=== PATIENT | male | born 1985 | race Caucasian/White ===

== ENCOUNTER 2019-12-11 11:57 | Inpatient (IN) | payer BC ==
[2019-12-11] MEDS ORDERED: LORazepam 2 MG/ML INJ IV PRN ×2 (12:15)
[2019-12-11] MEDS ORDERED: ONDANSETRON 4 MG/2 ML VIAL IVP PRN (12:17)
[2019-12-11] MEDS ORDERED: NALOXONE 0.4 MG/ML 1 ML VIAL IV PRN (12:17)
--- NOTE | 2019-12-11 12:23 | ED ---
General Adult HPI - General Chief complaint: Alcohol Stated complaint: Alcohol Detox Time Seen by Provider: 12/11/19 11:59 Source: patient, RN/MD, EMS, RN notes reviewed, old records reviewed (Review of report from [facility]) Mode of arrival: EMS Limitations: no limitations - History of Present Illness Initial comments: Patient is a pleasant 33-year-old male presenting to the emergency department as a transfer from [facility]. Patient was transferred secondary to alcohol withdrawal and concerns for impending DTs. Patient has been drinking heavily for the past month or so secondary to quarantined. Patient has been drinking around a fifth of alcohol per day. Patient states he was emotional last night and called his uncle. Patient denies suicidal ideation however states he was emotional and crying. Patient was brought to the hospital there and then transferred here with concerns for impending DTs. Patient did receive 7 mg of Ativan and was still borderline hypertension and tachycardic. Patient states he still feels somewhat restless. Patient does admit that he has occasionally seen some spots in the curtains. Patient denies any suicidal or homicidal thoughts. Patient denies ever making any suicidal or homicidal statements. - Related Data Allergies Allergy/AdvReac Type Severity Reaction Status Date / Time No Known Allergies Allergy Verified 12/11/19 12:07 Review of Systems ROS Statement: Those systems with pertinent positive or pertinent negative responses have been documented in the HPI. ROS Other: All systems not noted in ROS Statement are negative. Constitutional: Denies: fever Eyes: Denies: eye pain ENT: Denies: ear pain Respiratory: Denies: cough Cardiovascular: Denies: chest pain Endocrine: Denies: fatigue Gastrointestinal: Denies: abdominal pain Genitourinary: Denies: dysuria Musculoskeletal: Denies: back pain Skin: Denies: rash Neurological: Denies: weakness Psychiatric: Reports: as per HPI, anxiety. Denies: homicidal thoughts, suicidal thoughts Past Medical History Past Medical History: Atrial Fibrillation, GERD/Reflux History of Any Multi-Drug Resistant Organisms: None Reported Past Surgical History: Cardiac Ablation Additional Past Surgical History / Comment(s): loop recorder Past Psychological History: Anxiety Smoking Status: Current every day smoker Past Alcohol Use History: Abuse, Daily, Heavy Past Drug Use History: Marijuana General Exam Limitations: no limitations General appearance: alert, in no apparent distress Head exam: Present: normocephalic Eye exam: Present: normal appearance, PERRL, EOMI ENT exam: Present: normal oropharynx Neck exam: Present: normal inspection Respiratory exam: Present: normal lung sounds bilaterally Cardiovascular Exam: Present: tachycardia GI/Abdominal exam: Present: soft. Absent: tenderness Extremities exam: Present: normal inspection Neurological exam: Present: alert, oriented X3, CN II-XII intact. Absent: motor sensory deficit Expanded Neurological exam: Present: protecting the airway Speech: Present: fluid speech Motor strength exam: RUE: 5, LUE: 5, RLE: 5, LLE: 5 Eye Response: (4) open spontaneously Motor Response: (6) obeys commands Verbal Response: (5) oriented Psychiatric exam: Present: normal affect, normal mood Skin exam: Present: normal color Course Vital Signs 12/11/19 12:07 Temperature 98.9 F Pulse Rate 118 H Respiratory 18 Rate Blood Pressure 156/104 O2 Sat by Pulse 98 Oximetry Medical Decision Making - Medical Decision Making Patient updated on plan. Dr. Islas has been paged for admission covering for hospital call. Disposition Clinical Impression: Alcohol withdrawal syndrome Disposition: ADMITTED IP TO THIS HOSP Condition: Serious Is patient prescribed a controlled substance at d/c from ED?: No Referrals: None,Stated [REFERRING] - 1-2 days Decision Time: 12:23
[2019-12-11] MEDS ORDERED: LORazepam 2 MG/ML INJ IV STA (12:29)
[2019-12-11] MEDS: SODIUM CHLORIDE 0.9% 1,000 ML IV SCH (13:08)
[2019-12-11] MEDS: THIAMINE 100 MG TAB PO SCH (16:42)
[2019-12-11] MEDS: LORazepam 2 MG/ML INJ IV PRN ×3 (16:42→23:27)
--- NOTE | 2019-12-11 17:19 | P.HPIM ---
History of Present Illness H&P Date: 12/11/19 Chief Complaint: Alcohol withdrawal 33-year-old male presents the ED as a transfer from [facility] for alcohol withdrawal. There is also some concerns for suicidal ideation at [facility]. Apparently, patient has been drinking on a daily basis for the past month due to the pandemic. Patient reports drinking at least a fifth of whiskey a day along with beer. Patient states that he has been drinking on and off for the past 10 years. He quit 20 days prior to restarting again. Patient states that he did call his uncle that he did not see in many years asking for help that he may kill himself if he continues going down this road. His uncle got concerned and called 911. Patient reports symptoms of shakiness, chills, palpitations and diarrhea that happens when he does not drink. He denies any history of seizures. He denies any headache, lower extremity edema, nausea or vomiting, fever, chest pain, shortness of breath, changes in urination. No changes in appetite or weight. He denies any dizziness, numbness/weakness/tingling of the extremities. At [facility], he was noted to have a BP 155/97 with pulse of 125. EKG showed ventricular rate of 95. CBC was unremarkable. Urinalysis was negative. CMP showed chloride of 111, BUN of 6, glucose of 112, calcium of 7.6. Acetaminophen level was negative. Salicylate level was negative. Ethanol level was 300. UDS was negative except for THC. Patient was transferred to [facility] for alcohol intoxication with impending DT. Review of Systems Pertinent positives and negatives as discussed in HPI, a complete review of s ystems was performed and all other systems are negative. Past Medical History Past Medical History: Atrial Fibrillation, GERD/Reflux History of Any Multi-Drug Resistant Organisms: None Reported Past Surgical History: Ablation, Cardiac Ablation Additional Past Surgical History / Comment(s): loop recorder, cardioversion Past Anesthesia/Blood Transfusion Reactions: No Reported Reaction Past Psychological History: Anxiety Smoking Status: Current every day smoker Past Alcohol Use History: Abuse, Daily, Heavy Additional Past Alcohol Use History / Comment(s): Smoke about a pack a day , start smoking in 1999. Drinks a 5th a day with 10-12 beers daily for about a month Past Drug Use History: Marijuana - Past Family History Mother Additional Family Medical History / Comment(s): Chrons Father Family Medical History: COPD Additional Family Medical History / Comment(s): Alcholic Medications and Allergies Home Medications Medication Instructions Recorded Confirmed Type Aspirin [Adult Low Dose Aspirin EC] 81 mg PO BID 12/11/19 12/11/19 History Metoprolol Tartrate [Lopressor] 50 mg PO BID 12/11/19 12/11/19 History Multivitamins, Thera [Multivitamin 1 tab PO DAILY 12/11/19 12/11/19 History (formulary)] Omeprazole 20 mg PO BID 12/11/19 12/11/19 History busPIRone HCL 30 mg PO BID 12/11/19 12/11/19 History Allergies Allergy/AdvReac Type Severity Reaction Status Date / Time Penicillins Allergy Rash/Hives Verified 12/11/19 13:04 Physical Exam Vitals: Vital Signs Temp Pulse Pulse Resp BP BP Pulse Ox 12/11/19 16:00 110 H 16 12/11/19 15:27 98.4 F 109 H 16 143/82 95 12/11/19 14:02 98.4 F 117 H 16 139/89 96 12/11/19 13:14 109 H 18 129/85 96 12/11/19 12:07 98.9 F 118 H 18 156/104 98 Intake and Output 12/11/19 12/11/19 12/11/19 06:59 14:59 22:59 Other: # Voids 1 1 Weight 99.79 kg General: [non toxic], [no distress], [appears at stated age] Derm: [warm], [dry] Head: [atraumatic], [normocephalic], [symmetric] Eyes: [EOMI], [no lid lag], [anicteric sclera] Mouth: [no lip lesion], [mucus membranes moist] Cardiovascular: [S1S2 reg], [tachycardic], [positive DP pulse bilateral], Lungs: [CTA bilateral], [no rhonchi, no rales] , [no accessory muscle use] Abdominal: [soft], [ nontender to palpation], [no guarding], [no appreciable organomegaly] Ext: [no gross muscle atrophy], [no edema], [no contractures] Neuro: [ CN II-XI grossly intact], [no focal neuro deficits] Psych: [Alert], [oriented], [appropriate affect] Thrombosis Risk Factor Assmnt - Choose All That Apply Any of the Below Risk Factors Present?: No Assessment and Plan Assessment: Alcohol abuse with impending withdrawal syndrome Tachycardia likely due to the above History of A. fib Suicidal ideation Plans: Patient will be started on CIWA monitoring and given Ativan as needed. He will be placed on telemetry monitoring. Start thiamine by mouth. Plans: Continue to monitor. Telemetry monitoring. Potassium greater than 4 and magnesium greater than 2. History of cardioversion and ablation. Plans: Continue metoprolol by mouth. Patient completely denies suicidal ideation Plans: Follow psychiatry recommendations. DVT prophylaxis: [SCDs] Discussed with: [Patient] Anticipated discharge: [1-2 days] Anticipated discharge place: [Home] A total of [35] minutes was spent on the care of this complex patient more than 50% of the time was spent in counseling and care coordination. Patient names his mother Brenda decision-makers he can't make decisions for himself. Patient will like to be full code.
[2019-12-11] MEDS: METOPROLOL TARTRATE 50 MG TAB PO SCH (20:40)
[2019-12-11] MEDS: busPIRone HCl 10 MG TAB PO SCH (20:40)
[2019-12-11] MEDS: ASPIRIN 81 MG PO SCH (20:40)
[2019-12-11] MEDS: FAMOTIDINE 20 MG TAB PO SCH (20:40)
[2019-12-11] MEDS: HYDROcodone/APAP 5-325MG 1 EACH TAB PO PRN (20:40)
[2019-12-12] MEDS: LORazepam 2 MG/ML INJ IV PRN ×8 (02:57→22:56)
[2019-12-12] MEDS ORDERED: NICOTINE 7MG/24HR PATCH TRANSDERM STA (04:52)
[2019-12-12] MEDS: METOPROLOL TARTRATE 50 MG TAB PO SCH ×2 (07:33→20:01)
[2019-12-12] MEDS: ASPIRIN 81 MG PO SCH ×2 (07:33→20:01)
[2019-12-12] MEDS: THIAMINE 100 MG TAB PO SCH ×2 (07:33→16:53)
[2019-12-12] MEDS: PANTOPRAZOLE 40 MG TABLET PO SCH (07:34)
[2019-12-12] MEDS: busPIRone HCl 10 MG TAB PO SCH ×2 (07:34→20:01)
[2019-12-12] MEDS: MULTIVITAMINS, THERA 1 EACH TAB PO SCH (07:34)
[2019-12-12] MEDS: FAMOTIDINE 20 MG TAB PO SCH (07:34)
[2019-12-12] MEDS: HYDROcodone/APAP 5-325MG 1 EACH TAB PO PRN ×3 (07:37→21:43)
[2019-12-12] MEDS: SODIUM CHLORIDE 0.9% 1,000 ML IV SCH ×2 (07:39→14:00)
[2019-12-12 08:43] LABS: Basophils % (A) 1 %; Eosinophils # (A) 0.1 k/uL (0-0.7); Eosinophils % (A) 2 %; HCT 43.7 % (39.0-53.0); HGB 14.8 gm/dL (13.0-17.5); Lymphocytes # (A) 1.3 k/uL (1.0-4.8); Lymphocytes % (A) 22 %; MCH 32.2 pg (25.0-35.0); MCV 94.7 fL (80.0-100.0); Mean Platelet Volume 8.7; Monocytes # (A) 0.4 k/uL (0-1.0); Monocytes % (A) 6 %; Neutrophils # (A) 3.9 k/uL (1.3-7.7); Neutrophils % (A) 67 %; Platelet Count 139 k/uL (150-450); RBC 4.61 m/uL (4.30-5.90); WBC 5.7 k/uL (3.8-10.6)
[2019-12-12 08:50] LABS: ALT 125 U/L (4-49); AST 314 U/L (17-59); African American GFR (CKD) >90 (>60 ml/min/1.73 sqM); Albumin 3.9 g/dL (3.5-5.0); Alkaline Phosphatase 100 U/L (38-126); Anion Gap 10 mmol/L; Blood Urea Nitrogen 6 mg/dL (9-20); Calcium 9.4 mg/dL (8.4-10.2); Carbon Dioxide 24 mmol/L (22-30); Chloride 101 mmol/L (98-107); Glucose 94 mg/dL (74-99); Magnesium 1.9 mg/dL (1.6-2.3); Non-African American GFR(CKD) >90 (>60 ml/min/1.73 sqM); Potassium 3.7 mmol/L (3.5-5.1); Sodium 135 mmol/L (137-145); Total Bilirubin 1.5 mg/dL (0.2-1.3); Total Protein 6.9 g/dL (6.3-8.2)
[2019-12-12] MEDS ORDERED: MULTIVITAMINS, THERA 1 EACH TAB PO SCH (09:00)
[2019-12-12 12:58] VITALS: BMI 31.5
--- NOTE | 2019-12-12 14:05 | P.CN ---
Psychiatric Consult - . Consult:: 12/12/19 13:57 Identifying data: This patient is a 34-year-old single male who was admitted to the hospital with concerns of impending alcohol withdrawal. We're asked to consult regarding suicide ideation. History of present illness: The patient states that he was intoxicated with alcohol and was calling family members he had called his uncle who became alarmed and called 911. The patient apparently made statements that may have been suicidal in nature. The patient does not recall making those statements. He states that the last month he has been consuming a fifth of whiskey a day plus beer. He has a long history of alcohol use disorder with several relapses. He states he has been off of work and has been home alone. He states that he does not feel clinically depressed. He states he has no suicidal ideation intent or plan. He reports no hopelessness thinking. He describes future oriented thinking. He states that he needs to go home and clean his house. He has plans of selling his house and moving closer to family members as his current location as to remote. He is looking forward to engaging in work activity again. He states that his primary care physician has given him BuSpar for anxiety symptoms in the past and feels this may be providing some mild benefit. He reports no symptoms of psychosis he reports no history of hypomania or fitz. Past psychiatric history: No prior inpatient psychiatric hospitalization no reported suicide attempts, his only psychotropic medication is BuSpar 30 mg twice daily. He states he has not been tried on any others other than Ativan for prevention of alcohol withdrawal. Past medical history: History of pancreatitis related to alcohol use Chemical dependency history: Long history of alcohol use disorder for the last 10 years: He has been placed in inpatient chemical dependency treatment once [facility] was court ordered following a DUI arrest several years ago. He reports no use of any marijuana or illicit drugs. Family psychiatric/chemical dependency history: His father of complications related to alcohol use Social history the patient is single he has no children he resides alone. 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 Legal history includes DUI arrest no abuse history reported. Mental status exam: The patient is a male appearing his stated age he is dressed in hospital attire eye contact is appropriate speech is fluent sp ontaneous nonpressured. He indicates his mood is frustrated that he is in the hospital. He states he did not need this level of care. He reports having no hopelessness thinking he reports no suicidal ideation intent or plan he reports no homicidal ideation intent or plan. He spontaneously describes future oriented thinking. He endorses no auditory or visual hallucinations or any specific delusions there is no observed evidence of psychosis. He demonstrates no tangential thinking loose associations or flight of ideas he does not appear hypomanic or manic. He demonstrates no verbal or physical aggressiveness he demonstrates no involuntary repetitive movement. No tremulousness activity is observed during our conversation. He is oriented to person place and date. Impression 1. Alcohol use disorder severe, anxiety unspecified Plan: The patient does not require inpatient psychiatric hospitalization at this time. It is recommended that he attend inpatient chemical dependency treatment but he does not wish to pursue that course of action. Consideration should be given to using naltrexone to reduce cravings for alcohol use. He will give that consideration. He states he intends on pursuing AA meetings. He would benefit from outpatient counseling if he was motivated. Of course he is counseled to abstain from alcohol once discharged as this will elevate his safety risk. He is reminded to return to the hospital with any acute safety concerns.
--- NOTE | 2019-12-12 15:23 | P.PN ---
Subjective Progress Note Date: 12/12/19 Principal diagnosis: Alcohol abuse, withdrawal Patient was seen and examined. No acute events overnight. Patient reports shakiness and fidgetiness. He denies any symptoms of depression or suicidal ideation. He denies any chest pain, shortness of breath or palpitations. No n ausea or vomiting. No fever or chills. Most recent CIWA score is 8. Objective - Vital Signs Vital signs: Vital Signs Temp 98.8 F 12/12/19 07:29 Pulse 107 H 12/12/19 07:29 Resp 16 12/12/19 08:30 BP 157/84 12/12/19 07:29 Pulse Ox 99 12/12/19 07:29 Intake & Output 12/11/19 12/12/19 12/12/19 18:59 06:59 18:59 Intake Total 400 150 Balance 400 150 Weight 99.79 kg 99.79 kg Intake: Oral 400 150 Other: # Voids 1 1 2 - Exam General: [non toxic], [no distress], [appears at stated age] Derm: [warm], [dry] Head: [atraumatic], [normocephalic], [symmetric] Eyes: [EOMI], [no lid lag], [anicteric sclera] Mouth: [no lip lesion], [mucus membranes moist] Cardiovascular: [S1S2 reg], [tachycardic], [positive DP pulse bilateral], Lungs: [CTA bilateral], [no rhonchi, no rales] , [no accessory muscle use] Abdominal: [soft], [ nontender to palpation], [no guarding], [no appreciable organomegaly] Ext: [no gross muscle atrophy], [no edema], [no contractures] Neuro: [no focal neuro deficits] Psych: [Alert], [oriented], [appropriate affect] - Labs CBC & Chem 7: 12/12/19 07:35 12/12/19 07:35 Labs: Abnormal Lab Results - Last 24 Hours (Table) 12/12/19 12/12/19 Range/Units 07:35 07:35 Plt Count 139 L (150-450) k/uL Sodium 135 L (137-145) mmol/L BUN 6 L (9-20) mg/dL Total Bilirubin 1.5 H (0.2-1.3) mg/dL AST 314 H (17-59) U/L ALT 125 H (4-49) U/L Assessment and Plan Assessment: Alcohol abuse with impending withdrawal syndrome Alcoholic hepatitis and thrombocytopenia Tachycardia likely due to the above History of A. fib Suicidal ideation He has received 8 mg of Ativan since admission. Because he came to the hospital intoxicated, anticipate symptoms to worsen in the next 24-48 hours. Plans: Patient will be started on CIWA monitoring and given Ativan as needed. He will be placed on telemetry monitoring. Start thiamine by mouth. Total bilirubin 1.5, AST 314, ALT 125. Platelet count 139. Likely due to alcohol abuse. No signs of bleeding. Plans: Patient will need alcohol cessation and adequate follow-up in the outpatient setting. Plans: Continue to monitor. Telemetry monitoring. Potassium greater than 4 and magnesium greater than 2. Start normal saline at 100 mL/h. History of cardioversion and ablation. Plans: Continue metoprolol by mouth. Patient completely denies suicidal ideation. Plans: Psychiatry recommends outpatient follow-up and no inpatient admission. DVT prophylaxis: [SCDs] Discussed with: [Patient] Anticipated discharge: [1-2 days] Anticipated discharge place: [Home] A total of [35] minutes was spent on the care of this complex patient more than 50% of the time was spent in counseling and care coordination. Patient names his mother Brenda decision-makers he can't make decisions for himself. Patient will like to be full code.
[2019-12-13] MEDS: LORazepam 2 MG/ML INJ IV PRN ×6 (03:08→20:42)
[2019-12-13] MEDS: HYDROcodone/APAP 5-325MG 1 EACH TAB PO PRN ×4 (04:50→20:49)
[2019-12-13] MEDS: THIAMINE 100 MG TAB PO SCH ×2 (07:20→17:38)
[2019-12-13] MEDS: METOPROLOL TARTRATE 50 MG TAB PO SCH ×2 (07:20→20:42)
[2019-12-13] MEDS: MULTIVITAMINS, THERA 1 EACH TAB PO SCH (07:20)
[2019-12-13] MEDS: PANTOPRAZOLE 40 MG TABLET PO SCH (07:20)
[2019-12-13] MEDS: ASPIRIN 81 MG PO SCH ×2 (07:21→20:42)
[2019-12-13] MEDS: busPIRone HCl 10 MG TAB PO SCH ×2 (07:21→20:42)
[2019-12-13] MEDS: SODIUM CHLORIDE 0.9% 1,000 ML IV SCH ×4 (07:23→20:43)
[2019-12-13] MEDS ORDERED: MORPHINE SULFATE 2 MG/ML SYRINGE IVP STA (10:57)
[2019-12-13] MEDS: NICOTINE 7MG/24HR PATCH TRANSDERM SCH (11:48)
[2019-12-13] MEDS: predniSONE 50 MG TAB PO SCH (15:10)
[2019-12-13] MEDS: KETOROLAC 30 MG/ML 1 ML VIAL IVP PRN (15:11)
--- NOTE | 2019-12-13 15:11 | P.PN ---
Subjective Progress Note Date: 12/13/19 Principal diagnosis: Alcohol abuse, withdrawal Patient was seen and examined. No acute events overnight. Patient reports shakiness and fidgetiness. He denies any symptoms of depression or suicidal ideation. He denies any chest pain, shortness of breath or palpitations. No n ausea or vomiting. No fever or chills. He received 8 mg of Ativan over the past 24 hours. He complains of excruciating right foot pain, 10 out of 10 in severity that started sudden onset yesterday. Pain is located right above the big toe. He denies any fever or chills. Objective - Vital Signs Vital signs: Vital Signs Temp 98.5 F 12/13/19 07:00 Pulse 92 12/13/19 07:00 Resp 16 12/13/19 07:15 BP 143/94 12/13/19 07:00 Pulse Ox 96 12/13/19 07:00 Intake & Output 12/12/19 12/13/19 12/13/19 18:59 06:59 18:59 Intake Total 150 1150 Balance 150 1150 Weight 99.79 kg Intake: Intake, IV Titration 800 Amount Sodium Chloride 0.9% 1, 800 000 ml @ 100 mls/hr IV . Q10H [facility] Rx#:[id number] Oral 150 350 Other: # Voids 2 1 2 - Exam General: [non toxic], [no distress with mild tremors on outstretched hands], [appears at stated age] Derm: [warm], [dry] Head: [atraumatic], [normocephalic], [symmetric] Eyes: [EOMI], [no lid lag], [anicteric sclera] Mouth: [no lip lesion], [mucus membranes moist] Cardiovascular: [S1S2 reg], [tachycardic], [positive DP pulse bilateral], Lungs: [CTA bilateral], [no rhonchi, no rales] , [no accessory muscle use] Abdominal: [soft], [ nontender to palpation], [no guarding], [no appreciable organomegaly] Ext: [no gross muscle atrophy], [no edema], [no contractures], [tenderness with painful range of motion of the right first toe] Neuro: [no focal neuro deficits] Psych: [Alert], [oriented], [appropriate affect] - Labs CBC & Chem 7: 12/12/19 07:35 12/12/19 07:35 Assessment and Plan Assessment: Gout Alcohol abuse with impending withdrawal syndrome Alcoholic hepatitis and thrombocytopenia Tachycardia likely due to the above History of A. fib Suicidal ideation Plans: Morphine 2 mg IV now. Toradol as needed. Follow uric acid tomorrow morn ing. 5 days of prednisone. He has received 8 mg of Ativan over the last 24 hours. Because he came to the hospital intoxicated, anticipate symptoms to worsen in the next 24. Plans: Patient will be started on CIWA monitoring and given Ativan as needed. He will be placed on telemetry monitoring. Start thiamine by mouth. Total bilirubin 1.5, AST 314, ALT 125. Platelet count 139. Likely due to alcohol abuse. No signs of bleeding. Plans: Patient will need alcohol cessation and adequate follow-up in the outpatient setting. Repeat CMP tomorrow morning. Plans: Continue to monitor. Telemetry monitoring. Potassium greater than 4 and magnesium greater than 2. Start normal saline at 100 mL/h. History of cardioversion and ablation. Plans: Continue metoprolol by mouth. Patient completely denies suicidal ideation. Plans: Psychiatry recommends outpatient follow-up and no inpatient admission. [Patient with likely gout. Treatment started. He is pending clinical improvement. Likely DC in 1-2 days.]
[2019-12-14] MEDS: LORazepam 2 MG/ML INJ IV PRN ×3 (02:58→12:08)
[2019-12-14] MEDS: HYDROcodone/APAP 5-325MG 1 EACH TAB PO PRN ×2 (02:58→07:28)
--- NOTE | 2019-12-14 06:30 | CDI ---
Documentation Clarification Form Date: 12/14/2019 06:22:43 AM From: Coty Perdomo RN, CCDS Admit Date: 12/12/2019 09:21:00 AM Patient Name: Tavo Johnson Visit Number: [id number] ATTENTION: The Clinical Documentation Specialists (CDI) and [facility] Coding Staff appreciate your assistance in clarifying documentation. Please respond to the clarification below the line at the bottom and electronically sign. The CDI & [facility] Coding staff will review the response and follow-up if needed. Please note: Queries are made part of the Legal Health Record. If you have any questions, please contact the author of this message via ITS. Dr. Иван Hernandez Atrial Fibrillation is documented in the H&P and progress notes, and quires further specificity History/Risk Factors: ETOH abuse, Atrial fib, Ablation, cardioversion, smoker, anxiety Clinical Indicators: 12/10 H&P: "Hx of a-fib. Cardioversion and ablation. Continue metoprolol. Telemetry monitoring" EKG/telemetry: sinus rhythm Treatment: Lopressor 50 mg PO BID In your professional opinion, can you please clarify the type of Atrial Fibrillation, if known? Paroxysmal Persistent Other, please specify Unable to determine (Last Revision: November 2017) paroxysmal MTDD
--- NOTE | 2019-12-14 06:43 | CDI ---
Documentation Clarification Form Date: 12/14/201938 CDS: Coty Perdomo RN, CCDS Admit Date: 12/12/2019920 Patient Name: Tavo Johnson ATTENTION: The Clinical Documentation Specialists (CDI) and [facility] Coding Staff appreciate your assistance in clarifying documentation. Please respond to the clarification below the line at the bottom and electronically sign. The CDI & [facility] Coding staff will review the response and follow-up if needed. Please note: Queries are made part of the Legal Health Record. If you have any questions, please contact the author of this message via ITS. Dr. Hernandez, Please indicate the clinical significance of the Coronavirus (PCR) testing patient received upon admission as Coronavirus status must be documented on all patients tested. Patient history/risk factors: Smoking, atrial fib, ETOH abuse Clinical Indicators: CXR: not done Labs: AST 314, ALT 125 ABGs: not done Viral Panel: Coronavirus (PCR)- Negative 12/10 1206 Admission V/S: Temp 98.9, HR 118, B/P 156/104, Spo2 98% RA Treatment: 0.9%NS at 120 cc/hr In order to capture the severity of condition, please clarify if the above treatment/clinical indicators signify: COVID-19 ruled out Other, please specify Please continue to document in your progress notes and discharge summary in order to capture severity of illness and risk of mortality. Include clinical findings that support your diagnosis. covid ruled out this is a mandatory test for anything admitted thru the ED at this time regardless of symptoms MTDD
[2019-12-14] MEDS: busPIRone HCl 10 MG TAB PO SCH (07:28)
[2019-12-14] MEDS: ASPIRIN 81 MG PO SCH (07:28)
[2019-12-14] MEDS: PANTOPRAZOLE 40 MG TABLET PO SCH (07:29)
[2019-12-14] MEDS: METOPROLOL TARTRATE 50 MG TAB PO SCH (07:29)
[2019-12-14] MEDS: THIAMINE 100 MG TAB PO SCH (07:29)
[2019-12-14] MEDS: MULTIVITAMINS, THERA 1 EACH TAB PO SCH (07:29)
[2019-12-14] MEDS: predniSONE 50 MG TAB PO SCH (07:30)
[2019-12-14] MEDS: NICOTINE 7MG/24HR PATCH TRANSDERM SCH (07:30)
[2019-12-14 07:37] LABS: ALT 100 U/L (4-49); AST 142 U/L (17-59); African American GFR (CKD) >90 (>60 ml/min/1.73 sqM); Albumin 3.8 g/dL (3.5-5.0); Alkaline Phosphatase 91 U/L (38-126); Anion Gap 6 mmol/L; Blood Urea Nitrogen 7 mg/dL (9-20); Calcium 9.2 mg/dL (8.4-10.2); Carbon Dioxide 25 mmol/L (22-30); Chloride 108 mmol/L (98-107); Glucose 88 mg/dL (74-99); Non-African American GFR(CKD) >90 (>60 ml/min/1.73 sqM); Potassium 3.7 mmol/L (3.5-5.1); Sodium 139 mmol/L (137-145); Total Bilirubin 0.6 mg/dL (0.2-1.3); Total Protein 6.7 g/dL (6.3-8.2); Uric Acid 6.8 mg/dL (3.5-8.5)
[2019-12-14 07:40] LABS: HCT 40.6 % (39.0-53.0); HGB 13.7 gm/dL (13.0-17.5); MCH 32.7 pg (25.0-35.0); MCHC 33.7 g/dL (31.0-37.0); MCV 96.9 fL (80.0-100.0); Mean Platelet Volume 8.1; Platelet Count 130 k/uL (150-450); RBC 4.19 m/uL (4.30-5.90); RDW 13.5 % (11.5-15.5); WBC 5.3 k/uL (3.8-10.6)
[2019-12-14 08:01] VITALS: BP 145/91; PULSE 89; RESP 18; TEMP 97.5
[2019-12-14] MEDS: KETOROLAC 30 MG/ML 1 ML VIAL IVP PRN ×2 (09:55→14:15)
[2019-12-14] MEDS: SODIUM CHLORIDE 0.9% 1,000 ML IV SCH ×2 (11:00→12:33)
--- NOTE | 2019-12-14 16:45 | P.DS ---
Providers Date of admission: 12/12/19 09:21 Expected date of discharge: 12/14/19 Attending physician: Иван Hernandez MD Consults: 12/11/19 17:03 Consult Physician Routine Consulting Provider: Cong Maynard Consult Reason/Comments: SI, ETOH Do you want consulting provider notified?: Yes Primary care physician: [facility] Course: 33-year-old male presents the ED as a transfer from [facility] for alcohol withdrawal. There is also some concerns for suicidal ideation at [facility]. Apparently, patient has been drinking on a daily basis for the past month due to the pandemic. Patient reports drinking at least a fifth of whiskey a day along with beer. Patient states that he has been drinking on and off for the past 10 years. He quit 20 days prior to restarting again. Patient states that he did call his uncle that he did not see in many years asking for help that he may kill himself if he continues going down this road. His uncle got concerned and called 911. Patient reports symptoms of shakiness, chills, palpitations and diarrhea that happens when he does not drink. He denies any history of seizures. He denies any headache, lower extremity edema, nausea or vomiting, fever, chest pain, shortness of breath, changes in urination. No changes in appetite or weight. He denies any dizziness, numbness/weakness/tingling of the extremities. At [facility], he was noted to have a BP 155/97 with pulse of 125. EKG showed ventricular rate of 95. CBC was unremarkable. Urinalysis was negative. CMP showed chloride of 111, BUN of 6, glucose of 112, calcium of 7.6. Acetaminophen level was negative. Salicylate level was negative. Ethanol level was 300. UDS was negative except for THC. Patient was transferred to [facility] for alcohol intoxication with impending DT. His alcohol withdrawal symptoms were controlled with Ativan as needed. He was noted to have a transaminitis with total bilirubin 1.5, AST 314, ALT 125. This is thought to be related to alcohol abuse. Patient developed sudden onset of right big toe pain during his admission. This was classic symptoms for gouty attack. He was given morphine and transitioned to Toradol. He was given 5 days of prednisone on discharge. Patient was seen and examined. No acute events overnight. Patient reports improvement in his right foot pain, 6 out of 10 in severity. Patient states that the pain is tolerable and he should be able to go home today. He reports improvement in his withdrawal-like symptoms. States that he is motivated to qu it drinking. General: [non toxic], [no distress with mild tremors on outstretched hands], [appears at stated age] Derm: [warm], [dry] Head: [atraumatic], [normocephalic], [symmetric] Eyes: [EOMI], [no lid lag], [anicteric sclera] Mouth: [no lip lesion], [mucus membranes moist] Cardiovascular: [S1S2 reg], [no murmur], [positive DP pulse bilateral], Lungs: [CTA bilateral], [no rhonchi, no rales] , [no accessory muscle use] Abdominal: [soft], [ nontender to palpation], [no guarding], [no appreciable organomegaly] Ext: [no gross muscle atrophy], [no edema], [no contractures], [tenderness with painful range of motion of the right first toe] Neuro: [no focal neuro deficits] Psych: [Alert], [oriented], [appropriate affect] Gout Alcohol abuse with impending withdrawal syndrome Alcoholic hepatitis and thrombocytopenia History of A. fib Suicidal ideation Plans: Toradol as needed. 5 days of prednisone. Plans: Patient will be started on CIWA monitoring. Will DC with a 7 day supply of Ativan for withdrawal symptoms, advised of the risks of with taking Ativan with alcohol. He will be placed on telemetry monitoring. Start thiamine by mouth. Total bilirubin 1.5, AST 314, ALT 125. Platelet count 139. Likely due to alcohol abuse. No signs of bleeding. Plans: Patient will need alcohol cessation and adequate follow-up in the outpatient setting. History of cardioversion and ablation. Plans: Continue metoprolol by mouth. Patient completely denies suicidal ideation. Plans: Psychiatry recommends outpatient follow-up and no inpatient admission. [Patient with likely gout. Treatment started. He is pending clinical improvement. Withdrawal symptoms controlled today. DC today.] This complex discharge took about 35 minutes to complete. Patient Condition at Discharge: Stable Plan - Discharge Summary Discharge Rx Participant: Yes New Discharge Prescriptions: New LORazepam [Ativan] 1 mg PO TID PRN 7 Days #21 tab PRN Reason: Alcohol Withdrawal predniSONE 50 mg PO DAILY #3 tab Ketorolac [Toradol] 10 mg PO Q6HR #20 tab Continue Aspirin [Adult Low Dose Aspirin EC] 81 mg PO BID busPIRone HCL 30 mg PO BID Omeprazole 20 mg PO BID Metoprolol Tartrate [Lopressor] 50 mg PO BID Discontinued Multivitamins, Thera [Multivitamin (formulary)] 1 tab PO DAILY Discharge Medication List Aspirin [Adult Low Dose Aspirin EC] 81 mg PO BID 12/11/19 [History] Metoprolol Tartrate [Lopressor] 50 mg PO BID 12/11/19 [History] Omeprazole 20 mg PO BID 12/11/19 [History] busPIRone HCL 30 mg PO BID 12/11/19 [History] Ketorolac [Toradol] 10 mg PO Q6HR #20 tab 12/14/19 [Rx] LORazepam [Ativan] 1 mg PO TID PRN 7 Days #21 tab 12/14/19 [Rx] predniSONE 50 mg PO DAILY #3 tab 12/14/19 [Rx] Follow up Appointment(s)/Referral(s): Peri Patterson, MARCELLUS [Primary Care Provider] - 1-2 Days (office closed at time of discharge. Please call to make appointment) Patient Instructions/Handouts: Alcohol Withdrawal (DC) Activity/Diet/Wound Care/Special Instructions: Diet: Regular Please refrain from drinking EtOH. Take all medications as necessary. Come back to the ED for suicidal or homicidal ideations. Discharge Disposition: HOME SELF-CARE
== END 2019-12-14 14:48 | disposition home or self-care (01) | DRG 897 ==
LOC: EC 11:57 → 4SSUR 12:17 → OBSVTOIN 12-12 09:21
PROVIDERS: ADMIT Family Medicine; ATTEND Family Medicine
DX: F10.239 Alcohol dependence with withdrawal, unspecified (principal); F17.200 Nicotine dependence, unspecified, uncomplicated; I48.0 Paroxysmal atrial fibrillation; D69.6 Thrombocytopenia, unspecified; M10.9 Gout, unspecified; K70.10 Alcoholic hepatitis without ascites; F41.9 Anxiety disorder, unspecified; K21.9 Gastro-esophageal reflux disease without esophagitis; Z98.890 Other specified postprocedural states; Z82.5 Family history of asthma and other chronic lower respiratory diseases; Z79.899 Other long term (current) drug therapy; Z79.82 Long term (current) use of aspirin; Z88.0 Allergy status to penicillin; Z11.59 Encounter for screening for other viral diseases
CPT/HCPCS: 80053; 83735; 84550; 85025; 85027; 87635; 96374; 99285

== ENCOUNTER 2020-10-23 22:56 | Inpatient (IN) | payer BC, OTHER ==
[2020-10-23] MEDS ORDERED: SODIUM CHLORIDE 0.9% 1,000 ML IV STA (23:05)
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
[2020-10-23 23:45] LABS: Basophils # (A) 0.1 k/uL (0-0.2); Basophils % (A) 0 %; Eosinophils # (A) 0.3 k/uL (0-0.7); Eosinophils % (A) 2 %; HCT 40.6 % (39.0-53.0); HGB 13.4 gm/dL (13.0-17.5); Lymphocytes # (A) 1.6 k/uL (1.0-4.8); Lymphocytes % (A) 12 %; MCH 30.3 pg (25.0-35.0); MCV 92.1 fL (80.0-100.0); Mean Platelet Volume 8.4; Monocytes # (A) 0.7 k/uL (0-1.0); Monocytes % (A) 5 %; Neutrophils # (A) 10.7 k/uL (1.3-7.7); Neutrophils % (A) 79 %; Platelet Count 331 k/uL (150-450); Poikilocytosis Slight; RBC 4.41 m/uL (4.30-5.90); RDW 13.3 % (11.5-15.5); WBC 13.6 k/uL (3.8-10.6)
--- NOTE | 2020-10-24 00:16 | XR ---
EXAMINATION TYPE: XR knee limited bilateral DATE OF EXAM: 10/24/2020 COMPARISON: NONE HISTORY: Knee pain TECHNIQUE: 4 views FINDINGS: I see no fracture nor dislocation. Joint spaces are normal in both knees. There is no sign of knee joint effusion. Soft tissues appear normal. IMPRESSION: Normal bilateral knee exam.
--- NOTE | 2020-10-24 00:19 | XR ---
EXAMINATION TYPE: XR ankle limited LT DATE OF EXAM: 10/24/2020 COMPARISON: NONE HISTORY: Ankle pain TECHNIQUE: 2 views FINDINGS: Ankle mortise is anatomic. There is possible nondisplaced chip fracture of the tip of the d istal fibula. The talus is intact. IMPRESSION: There is probably a nondisplaced chip fracture of the tip of the distal fibula.
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
[2020-10-24 00:34] LABS: Partial Thromboplastin Time 25.7 sec (22.0-30.0); Prothrombin Time 10.7 sec (9.0-12.0)
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
[2020-10-24] MEDS ORDERED: MORPHINE SULFATE 4 MG/ML SYRINGE IVP STA (00:56)
[2020-10-24] MEDS ORDERED: HYDROmorphone 1 MG/ML 1 ML SYRINGE IVP STA ×2 (00:58→02:17)
[2020-10-24] MEDS ORDERED: HYDROmorphone 1 MG/ML 1 ML SYRINGE IVP PRN (01:02)
[2020-10-24] MEDS ORDERED: NALOXONE 0.4 MG/ML 1 ML VIAL IV PRN (01:04)
[2020-10-24] MEDS ORDERED: ONDANSETRON 4 MG/2 ML VIAL IVP PRN (01:04)
[2020-10-24] MEDS: SODIUM CHLORIDE 0.9% 1,000 ML IV SCH ×3 (01:11→15:30)
[2020-10-24 01:16] LABS: ALT 19 U/L (4-49); AST 68 U/L (17-59); African American GFR (CKD) >90 (>60 ml/min/1.73 sqM); Albumin 3.6 g/dL (3.5-5.0); Alcohol <10 mg/dL; Alkaline Phosphatase 87 U/L (38-126); Anion Gap 7 mmol/L; Blood Urea Nitrogen 9 mg/dL (9-20); Calcium 8.5 mg/dL (8.4-10.2); Carbon Dioxide 29 mmol/L (22-30); Chloride 107 mmol/L (98-107); Creatine Kinase 498 U/L (55-170); Glucose 121 mg/dL (74-99); Non-African American GFR(CKD) 90 (>60 ml/min/1.73 sqM); Sodium 143 mmol/L (137-145); Total Bilirubin 0.4 mg/dL (0.2-1.3); Total Protein 6.5 g/dL (6.3-8.2)
[2020-10-24 01:22] LABS: Appearance,Urine Clear (Clear); Bilirubin,Urine Negative (Negative); Blood,Urine Small (Negative); Color,Urine Light Yellow; Glucose,Urine (UA) Negative (Negative); Ketones,Urine Negative (Negative); Leukocyte Esterase,Urine Negative (Negative); Nitrite,Urine Negative (Negative); Protein,Urine Negative (Negative); RBC,Urine 1 /hpf (0-5); Specific Gravity,Urine 1.011 (1.001-1.035); Squamous Epithelial Cell,Urine 1 /hpf (0-4); Urobilinogen,Urine <2.0 mg/dL (<2.0); WBC,Urine 2 /hpf (0-5)
[2020-10-24 01:32] LABS: Amphetamine Screen,Urine Not Detected (NotDetected); Barbiturate Screen,Urine Not Detected (NotDetected); Benzodiazepines Screen,Urine Not Detected (NotDetected); Cocaine Screen,Urine Detected (NotDetected); Methadone Screen, Urine Not Detected (NotDetected); Opiate Screen,Urine Not Detected (NotDetected); Oxycodone Screen, Urine Not Detected (NotDetected); Phencyclidine Screen,Urine Not Detected (NotDetected); Tricyclic Antidepressant,Urine Not Detected (NotDetected); Urn Cannabinoid Scrn Detected (NotDetected)
[2020-10-24] MEDS ORDERED: KETOROLAC 15 MG/ML 1 ML VIAL IVP STA (02:17)
[2020-10-24] MEDS ORDERED: THIAMINE 100 MG/ML 2 ML VIAL IM STA (09:21)
[2020-10-24] MEDS ORDERED: Potassium Replacement Protocol 1 EACH MISC MISCELLANE PRN (09:21)
[2020-10-24] MEDS ORDERED: LORazepam 2 MG/ML INJ IV PRN ×2 (09:21)
[2020-10-24] MEDS: HYDROmorphone 1 MG/ML 1 ML SYRINGE IVP PRN ×5 (09:34→21:45)
[2020-10-24] MEDS: KETOROLAC 15 MG/ML 1 ML VIAL IVP PRN ×2 (09:37→18:26)
[2020-10-24] MEDS: PANTOPRAZOLE 40 MG/10 ML VIAL IV SCH (09:39)
[2020-10-24] MEDS: LORazepam 2 MG/ML INJ IV PRN ×3 (09:44→21:45)
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
[2020-10-24] MEDS: POTASSIUM CHLORIDE ER 20 MEQ TAB.ER PO SCH ×2 (12:26→12:27)
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
--- NOTE | 2020-10-24 13:54 | XR ---
EXAMINATION TYPE: XR femur LT DATE OF EXAM: 10/24/2020 CLINICAL HISTORY: Pain TECHNIQUE: Two views of the left femur are obtained. COMPARISON: None FINDINGS: There is no acute fracture or dislocation seen in the left femur. The left hip and knee j oints appear within normal limits. The overlying soft tissue appears unremarkable. IMPRESSION: There is no acute fracture or dislocation in the left femur.
--- NOTE | 2020-10-24 13:55 | XR ---
EXAMINATION TYPE: XR tibia fibula LT DATE OF EXAM: 10/24/2020 COMPARISON: NONE HISTORY: Pain TECHNIQUE: Two views are submitted. FINDINGS: Tiny ossific densities are seen anterior to the proximal anterior cortex of the right tibia. This cou ld represent tiny chip fracture. Correlate with point tenderness. Remaining osseous structures intact . IMPRESSION: 1. Tiny bony ossific densities anterior to the proximal tibia anterior cortex. Too small to character ize and of indeterminate age. Possibly related to tiny chip fractures correlate with point tenderness .
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
[2020-10-24] MEDS: THIAMINE 100 MG TAB PO SCH (18:26)
[2020-10-24] MEDS: ASPIRIN 81 MG PO SCH (21:46)
[2020-10-25] MEDS: SODIUM CHLORIDE 0.9% 1,000 ML IV SCH (00:44)
[2020-10-25] MEDS: HYDROmorphone 1 MG/ML 1 ML SYRINGE IVP PRN ×7 (01:01→20:47)
[2020-10-25] MEDS: LORazepam 2 MG/ML INJ IV PRN (04:29)
[2020-10-25] MEDS: PANTOPRAZOLE 40 MG/10 ML VIAL IV SCH (07:53)
[2020-10-25] MEDS: THIAMINE 100 MG TAB PO SCH ×2 (07:53→16:20)
[2020-10-25] MEDS: ASPIRIN 81 MG PO SCH ×2 (07:53→20:47)
[2020-10-25] MEDS: FLUoxetine HCL 20 MG CAP PO SCH (07:53)
[2020-10-25] MEDS: ENOXAPARIN 40 MG/0.4 ML SYRINGE SQ SCH (07:54)
[2020-10-25 08:35] LABS: Basophils # (A) 0.03 X 10*3/uL (0.00-0.10); Basophils % (A) 0.5 %; Eosinophils # (A) 0.58 X 10*3/uL (0.04-0.35); Eosinophils % (A) 8.8 %; HCT 31.7 % (39.6-50.0); HGB 11.5 g/dL (13.0-17.0); Lymphocytes # (A) 1.36 X 10*3/uL (0.90-5.00); Lymphocytes % (A) 20.6 %; MCH 34.7 pg (27.0-32.0); MCHC 36.3 g/dL (32.0-37.0); MCV 95.8 fL (80.0-97.0); Mean Platelet Volume 10.5 fL (9.5-12.2); Monocytes # (A) 0.63 X 10*3/uL (0.20-1.00); Monocytes % (A) 9.5 %; Neutrophils % (A) 60.4 %; Platelet Count 242 X 10*3/uL (140-440); RBC 3.31 X 10*6/uL (4.40-5.60); RDW 12.8 % (11.5-14.5); WBC 6.61 X 10*3/uL (4.50-10.00)
[2020-10-25 09:38] LABS: African American GFR (CKD) 133.2 (60.0-200.0); Albumin 3.4 g/dL (3.80-4.90); Albumin/Globulin Ratio 1.7 (1.60-3.17); Anion Gap 6.5 mmol/L (4.00-12.00); BUN/Creat Ratio 6.25 Ratio (12.00-20.00); Calcium 8.3 mg/dL (8.7-10.3); Carbon Dioxide 28.5 mmol/L (21.6-31.8); Non-African American GFR(CKD) 114.9 (60.0-200.0); Potassium 3.1 mmol/L (3.5-5.5); Total Bilirubin 0.5 mg/dL (0.3-1.2); Total Protein 5.4 g/dL (6.2-8.2)
[2020-10-25] MEDS ORDERED: POTASSIUM CHLORIDE ER 20 MEQ TAB.ER PO STA (10:50)
[2020-10-25] MEDS: ALPRAZolam 0.25 MG TAB PO PRN ×2 (10:59→23:19)
[2020-10-25] MEDS: CYCLOBENZAPRINE 5 MG TAB PO PRN ×2 (10:59→23:18)
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
[2020-10-25 13:04] VITALS: BMI 27.9
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
[2020-10-25] MEDS: KETOROLAC 15 MG/ML 1 ML VIAL IVP PRN ×2 (16:21→23:18)
[2020-10-26] MEDS: SODIUM CHLORIDE 0.9% 1,000 ML IV SCH ×4 (01:40→21:01)
[2020-10-26] MEDS: HYDROmorphone 1 MG/ML 1 ML SYRINGE IVP PRN ×5 (04:26→19:47)
[2020-10-26] MEDS: ASPIRIN 81 MG PO SCH ×2 (08:24→21:01)
[2020-10-26] MEDS: CYCLOBENZAPRINE 5 MG TAB PO PRN ×2 (08:24→21:01)
[2020-10-26] MEDS: THIAMINE 100 MG TAB PO SCH ×2 (08:24→16:21)
[2020-10-26] MEDS: ALPRAZolam 0.25 MG TAB PO PRN ×2 (08:24→21:01)
[2020-10-26] MEDS: FLUoxetine HCL 20 MG CAP PO SCH (08:24)
[2020-10-26] MEDS: ENOXAPARIN 40 MG/0.4 ML SYRINGE SQ SCH (08:24)
[2020-10-26] MEDS: PANTOPRAZOLE 40 MG TABLET PO SCH (08:24)
[2020-10-26 11:12] LABS: African American GFR (CKD) 133.2 (60.0-200.0); BUN/Creat Ratio 6.25 Ratio (12.00-20.00); Calcium 8.5 mg/dL (8.7-10.3); Non-African American GFR(CKD) 114.9 (60.0-200.0); Potassium 3.7 mmol/L (3.5-5.5)
[2020-10-26 12:06] LABS: HGB 11.6 g/dL (13.0-17.0); MCH 30.9 pg (27.0-32.0); MCHC 33.1 g/dL (32.0-37.0); MCV 93.3 fL (80.0-97.0); Mean Platelet Volume 10.4 fL (9.5-12.2); Platelet Count 258 X 10*3/uL (140-440); RBC 3.75 X 10*6/uL (4.40-5.60); RDW 12.6 % (11.5-14.5); WBC 6.28 X 10*3/uL (4.50-10.00)
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
[2020-10-27] MEDS: HYDROmorphone 1 MG/ML 1 ML SYRINGE IVP PRN ×5 (01:42→17:07)
[2020-10-27] MEDS: SODIUM CHLORIDE 0.9% 1,000 ML IV SCH ×2 (01:43→14:25)
[2020-10-27] MEDS: KETOROLAC 15 MG/ML 1 ML VIAL IVP PRN (04:35)
[2020-10-27] MEDS: FLUoxetine HCL 20 MG CAP PO SCH (07:33)
[2020-10-27] MEDS: THIAMINE 100 MG TAB PO SCH (07:34)
[2020-10-27] MEDS: PANTOPRAZOLE 40 MG TABLET PO SCH (07:34)
[2020-10-27] MEDS: ENOXAPARIN 40 MG/0.4 ML SYRINGE SQ SCH (07:34)
[2020-10-27] MEDS: ASPIRIN 81 MG PO SCH (07:34)
--- NOTE | 2020-10-27 09:22 | XR ---
Right shoulder HISTORY: Trauma and pain 3 views the right shoulder Bone mineralization, joint spaces and alignment are maintained. Acromion is downturned. There is arth ropathy at the acromioclavicular joint. There are overlying artifacts. Right lung is normal as seen. IMPRESSION: No acute fracture or dislocation.
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
[2020-10-27] MEDS: CYCLOBENZAPRINE 5 MG TAB PO PRN (12:17)
[2020-10-27] MEDS: ALPRAZolam 0.25 MG TAB PO PRN (12:17)
[2020-10-27] MEDS ORDERED: DOCUSATE 100 MG CAP PO SCH (12:30)
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
[2020-10-27 13:51] VITALS: BP 136/82; PULSE 77; RESP 18; TEMP 98.4
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
== END 2020-10-27 17:34 | DRG 536 ==
LOC: EC 22:56 → 4SSUR 10-24 01:06
PROVIDERS: ADMIT Surgery; ATTEND Surgery
DX: S32.591A Other specified fracture of right pubis, initial encounter for closed fracture (principal); N17.9 Acute kidney failure, unspecified; S32.601A Unspecified fracture of right ischium, initial encounter for closed fracture; F10.230 Alcohol dependence with withdrawal, uncomplicated; I48.0 Paroxysmal atrial fibrillation; F14.10 Cocaine abuse, uncomplicated; S82.62XA Displaced fracture of lateral malleolus of left fibula, initial encounter for closed fracture; Z20.822 Contact with and (suspected) exposure to COVID-19; K21.9 Gastro-esophageal reflux disease without esophagitis; F41.9 Anxiety disorder, unspecified; F17.210 Nicotine dependence, cigarettes, uncomplicated; E87.6 Hypokalemia; E86.0 Dehydration; D72.829 Elevated white blood cell count, unspecified; V43.52XA Car driver injured in collision with other type car in traffic accident, initial encounter; Y92.410 Unspecified street and highway as the place of occurrence of the external cause; Y90.0 Blood alcohol level of less than 20 mg/100 ml; Z79.82 Long term (current) use of aspirin; Z79.899 Other long term (current) drug therapy; Z98.890 Other specified postprocedural states; Z88.0 Allergy status to penicillin; Z82.5 Family history of asthma and other chronic lower respiratory diseases; Z83.79 Family history of other diseases of the digestive system
CPT/HCPCS: 36415; 70450; 71045; 71260; 72125; 72170; 74177; 80048; 80053; 80306; 80320; 81001; 82550; 83605; 83735; 84484; 85025; 85027; 85610; 85730; 86850; 86900; 86901; 87635; 93005; 96361; 96372; 96374; 96375; 96376; 99291